=== PATIENT | female | born 1930 | race Caucasian/White ===

== ENCOUNTER → 2017-01-19 | Outpatient (CLI) | payer MEDICARE, BC ==
[~2017-01-19] MED LIST: ALMACONE 360 M360 ML; ALMACONE 360 M360 ML PO; AMITIZA24 MCG PO; ANUSOL-HC2.5% TOP; ARICEPT10 MG PO; ASPI325T6 PO; ATIVAN 0.50.5 MG/TAB PO; BENADRYL25 M2 PO; CALTRATE PLUS1 TAB PO; CITRACAL + D 251 TAB PO; COLACE 100100 MG/CAP PO; DAYPRO 600600 MG PO; DEBROX OT; ENSURE 237 ML237 ML PO; EXELON9.5 MG/24 TD; FENTANYL 100MCG TD; FENTANYL 100MCG TOP; FENTANYL 25 MCG TD; FENTANYL 50MCG TD; FEROSUL325 MG PO; FLONASE NASAL S16 GM NS; FOLIC ACID 11 MG/TA1 PO; GAS RELIEF125 MG PO; KLONOPIN 0.5MG0.5 MG PO; KLONOPIN WAFE0.25 MG PO; LACTAID1 TAB PO; LACTAID3000 UNIT PO; LASIX 20MG TABL20 MG PO; LASIX 40MG TABL40 MG PO; LEVAQUIN 5500 MG/TA1 PO; LEVSIN0.125 M1 PO; LINZESS145CAP; LINZESS145CAP PO; LIQUIFILM TEARS15 ML OP; LOPRESSOR 225 MG/TAB PO; LOPRESSOR 550 MG/TAB PO; LYRICA 100MG C100 M1 PO; LYRICA 50MG CAP50 MG PO; MACROBID 1100 MG/CAP PO; MAG-OX 400400 MG/TAB PO; MAGNESIUM200 MG PO; MILK OF MA400 MG/52; MILK OF MA400 MG/52 PO; MILK OF MAGNESI30 ML PO; MIRALAX PA17 GM/Dose PO; MYRBETR50MG PO; NAMENDA XR 28MG PO; NAPROSYN500 MG PO; NORCO 325 MG-51 TAB PO; NYSTATIN POWDER15 GM TOP; OXYCONTIN 10MG10 MG PO; PERCOCET 325 MG1 TA2 PO; PHENERGAN25 MG RC; PRESERVISION1 SGL PO; PRILOSEC 20MG20 MG PO; PROCTOZONE-HC2.5% RC; SENNA8.6 MG PO; SENOKOT S 50 MG1 TAB PO; SIMETHICONE125 MG PO; SIMETHICONE80 MG PO; SYNTHROID 0.0.025 MG PO; TRIAMCINOLONE A15 G3 TP; TYLENOL 325MG325 MG PO; VITAMIN B-1000 MCG/T PO; VITAMIN B-12100 MCG PO; VITAMIN B12 PO; VITAMIN C500 MG PO; VITAMIN D3400 IU PO; ZANTAC 300300 MG PO; ZESTRIL 20MG TA20 MG PO; ZOFRAN 4MG T4 MG/TAB PO; [UNRECOGNIZED DRUG - CODE] PO
[2017-01-19 10:27] LABS: BASO # 0.1 (0.0-0.2); BASO % 0.7 % (0.0-2.0); EOS # 0.1 (0.0-0.7); EOS % 1.2 % (0-4.0); GRAN # 3.5 (1.4-6.5); GRAN % 50.9 % (42.2-75.2); HEMATOCRIT 41.3 % (37.0-47.0); HEMOGLOBIN 13.8 g/dl (12.5-16.0); LYMPH # 2.5 (1.2-3.4); LYMPH % 36.4 % (20.0-51.0); MEAN CELL VOLUME 87 fl (80.0-100.0); MEAN CORPUSCULAR HEMOGLOBIN 29 pg (27.0-31.0); MEAN CORPUSCULAR HGB CONC 33 g/dl (33.0-37.0); MEAN PLATELET VOLUME 11.1 fl (7.4-10.4); MONO # 0.7 (0.1-0.6); MONO % 10.5 % (1.7-9.3); PLATELET COUNT 195 K/mm3 (130-400); RED BLOOD COUNT 4.76 M/mm3 (4.10-5.30); REDCELL DISTRIBUTION WIDTH-CV 14.7 % (11.5-14.5); WHITE BLOOD COUNT 6.8 K/mm3 (4.8-10.8)
[2017-01-19 10:35] LABS: CALCIUM 9.3 mg/dL (8.4-10.2); CREATININE, serum 0.5 mg/dL (0.52-1.25); POTASSIUM 4.4 mmol/L (3.4-5.0)
== END ==
LOC: ZCOL.LAB 09:31
PROVIDERS: Internal Medicine
DX: D64.89 Other specified anemias (principal)

== ENCOUNTER → 2017-02-25 | Outpatient (CLI) | payer MEDICARE, BC ==
[2017-02-26 00:03] LABS: PH 6 (5-8); URINE APPEARANCE Hazy; URINE BACTERIA Rare /hpf; URINE BILIRUBIN Negative (NEGATIVE); URINE BLOOD Negative (NEGATIVE); URINE COLOR Yellow; URINE GLUCOSE Negative (NEGATIVE); URINE KETONE Negative (NEGATIVE); URINE RBC 0-2 /hpf; URINE UROBILINOGEN Negative (NEGATIVE); URINE WBC 20-50 /hpf
== END ==
LOC: ZLAB.STJ 23:35
PROVIDERS: Internal Medicine
DX: N39.0 Urinary tract infection, site not specified (principal)

== ENCOUNTER → 2017-03-07 | Outpatient (CLI) | payer MEDICARE, BC | LOC: COL.RAD 14:22 | DX: T84.020A Dislocation of internal right hip prosthesis, initial encounter (principal); Y83.8 Other surgical procedures as the cause of abnormal reaction of the patient, or of later complication, without mention of misadventure at the time of the procedure; M25.551 Pain in right hip ==

== ENCOUNTER → 2017-03-09 | Outpatient (CLI) | payer MEDICARE, BC | LOC: COL.RAD 13:17 | DX: M25.572 Pain in left ankle and joints of left foot (principal); M81.8 Other osteoporosis without current pathological fracture ==

== ENCOUNTER → 2017-03-10 | Outpatient (CLI) | payer MEDICARE, BC ==
[2017-03-10 14:05] LABS: PH 7 (5-8); URINE APPEARANCE Clear; URINE BACTERIA Rare /hpf; URINE BILIRUBIN Negative (NEGATIVE); URINE BLOOD 1+ (NEGATIVE); URINE COLOR Yellow; URINE GLUCOSE Negative (NEGATIVE); URINE KETONE Negative (NEGATIVE); URINE RBC 0-2 /hpf; URINE UROBILINOGEN Negative (NEGATIVE)
== END ==
LOC: ZLAB.STJ 10:25
PROVIDERS: Internal Medicine
DX: Z02.89 Encounter for other administrative examinations (principal)

== ENCOUNTER 2017-03-11 11:35 | Inpatient (IN) | payer MEDICARE, BC ==
[~2017-03-11] VITALS: Ht 157.5 cm; Wt 49.8 kg
[~2017-03-11 11:35] MED LIST changes: -ALMACONE 360 M360 ML PO; -ANUSOL-HC2.5% TOP; -DEBROX OT; -ENSURE 237 ML237 ML PO; -FLONASE NASAL S16 GM NS; -LACTAID3000 UNIT PO; -LEVSIN0.125 M1 PO; -LIQUIFILM TEARS15 ML OP; -NAPROSYN500 MG PO; -NORCO 325 MG-51 TAB PO; -NYSTATIN POWDER15 GM TOP; -PHENERGAN25 MG RC; -PROCTOZONE-HC2.5% RC; -SENOKOT S 50 MG1 TAB PO; -TRIAMCINOLONE A15 G3 TP; -TYLENOL 325MG325 MG PO; -ZOFRAN 4MG T4 MG/TAB PO
[2017-03-14] VITALS (9 sets, daily range): BP systolic 90–122; BP diastolic 54–74; PULSE 67–76; TEMP 96.3–97.8
[2017-03-14] MEDS ORDERED: ALMACONE 360 M360 ML PO (11:22)
[2017-03-14] MEDS ORDERED: SIMETHICONE80 MG PO (11:26)
[2017-03-14] MEDS ORDERED: TYLENOL 325MG325 MG PO (11:31)
[2017-03-14 11:36] LABS: CALCIUM 9.1 mg/dL (8.4-10.2); CREATININE, serum 0.55 mg/dL (0.52-1.25); POTASSIUM 4.4 mmol/L (3.4-5.0)
[2017-03-15 01:48] VITALS: BP 108/66; PULSE 61; TEMP 97.5
[2017-03-15 05:25] VITALS: BP 101/62; PULSE 66; TEMP 98
[2017-03-15 08:53] LABS: HEMATOCRIT 33.6 % (37.0-47.0); HEMOGLOBIN 10.8 g/dl (12.5-16.0)
[2017-03-15 10:32] VITALS: BP 92/56; PULSE 78; TEMP 98.1
[2017-03-15 14:20] VITALS: BP 115/66; PULSE 72; TEMP 98
[2017-03-15 17:29] VITALS: BP 1363/71; PULSE 75; TEMP 98.5
[2017-03-15 21:48] VITALS: BP 141/77; PULSE 82; TEMP 98
[2017-03-16 05:01] VITALS: BP 111/55; PULSE 72; TEMP 98.2
[2017-03-16 08:12] LABS: HEMATOCRIT 27.8 % (37.0-47.0); HEMOGLOBIN 9.2 g/dl (12.5-16.0)
[2017-03-16 09:47] VITALS: BP 111/53; PULSE 69; TEMP 97.4
[2017-03-16 13:43] VITALS: BP 85/55; PULSE 73; TEMP 98.4
[2017-03-16 17:33] VITALS: BP 93/54; PULSE 88; TEMP 97.8
[2017-03-16 20:52] VITALS: BP 131/79; PULSE 87; TEMP 98.4
[2017-03-17 06:03] VITALS: BP 110/60; PULSE 78
[2017-03-17] MEDS ORDERED: SENOKOT S 50 MG1 TAB PO (07:18)
[2017-03-17] MEDS ORDERED: ASPI325T6 PO (07:19)
[2017-03-17] MEDS ORDERED: NORCO 325 MG-51 TAB PO (07:25)
[2017-03-17 08:03] LABS: HEMATOCRIT 30.7 % (37.0-47.0); HEMOGLOBIN 10.1 g/dl (12.5-16.0)
[2017-03-17] MEDS ORDERED: NAPROSYN500 MG PO (08:03)
[2017-03-17] MEDS ORDERED: COLACE 100100 MG/CAP PO (08:03)
[2017-03-17] MEDS ORDERED: ZOFRAN 4MG T4 MG/TAB PO (08:05)
[2017-03-17 10:19] VITALS: BP 102/57; PULSE 77; TEMP 98
[2017-03-17 10:29] VITALS: BP 102/57; PULSE 77; TEMP 98
== END 2017-03-17 14:02 | DRG 470 ==
LOC: INPTSU 03-14 09:48 → JCC 03-14 11:30 → SURG 03-14 11:30
PROVIDERS: Nurse Anesthetist, Certified Registered; Orthopaedic Surgery Sports Medicine
PROC: 0SRR0J9 Replacement of Right Hip Joint, Femoral Surface with Synthetic Substitute, Cemented, Open Approach (ICD-10-PCS; principal; 2017-03-14 11:30)
PROC: 0QP604Z Removal of Internal Fixation Device from Right Upper Femur, Open Approach (ICD-10-PCS; 2017-03-14 11:30)
DX: S72.141D Displaced intertrochanteric fracture of right femur, subsequent encounter for closed fracture with routine healing (principal); M87.851 Other osteonecrosis, right femur; I10 Essential (primary) hypertension
CPT/HCPCS: A9284; C1776; J0690; J1100; J2175; J2250; J2405; J2704; J2765; J7030; J7120

== ENCOUNTER 2017-03-20 23:07 | Inpatient (IN) | payer MEDICARE, BC ==
[~2017-03-20] VITALS: Ht 152.4 cm; Wt 52.2 kg
[~2017-03-20 23:07] MED LIST changes: +ALMACONE 360 M360 ML PO; +NAPROSYN500 MG PO; +NORCO 325 MG-51 TAB PO; +SENOKOT S 50 MG1 TAB PO; +TYLENOL 325MG325 MG PO; +ZOFRAN 4MG T4 MG/TAB PO
[2017-03-20 23:39] LABS: BASO % 0.4 % (0.0-2.0); EOS # 0.2 (0.0-0.7); EOS % 2.3 % (0-4.0); GRAN # 3.5 (1.4-6.5); GRAN % 41.2 % (42.2-75.2); LYMPH # 3.8 (1.2-3.4); LYMPH % 44.6 % (20.0-51.0); MEAN CELL VOLUME 91 fl (80.0-100.0); MEAN CORPUSCULAR HGB CONC 32 g/dl (33.0-37.0); MONO # 0.9 (0.1-0.6); MONO % 10.8 % (1.7-9.3); PLATELET COUNT 282 K/mm3 (130-400); REDCELL DISTRIBUTION WIDTH-CV 15.9 % (11.5-14.5); WHITE BLOOD COUNT 8.6 K/mm3 (4.8-10.8)
[2017-03-20 23:46] LABS: HEMATOCRIT 28.1 % (37.0-47.0); HEMOGLOBIN 8.9 g/dl (12.5-16.0); MEAN CORPUSCULAR HEMOGLOBIN 29 pg (27.0-31.0)
[2017-03-20 23:49] LABS: INR 1.1 (0.8-3.0); PROTHROMBIN TIME 12.1 SECONDS (9.7-12.8)
[2017-03-20 23:52] LABS: PARTIAL THROMBOPLASTIN TIME 30.8 SECONDS (26.0-37.0)
[2017-03-21] VITALS (493 sets, daily range): BP systolic 94–151; BP diastolic 57–94; PULSE 60–108; TEMP 97.1–98.9; O2SAT 59–100
[2017-03-21] LABS: PH 5 (5-8); SQUAMOUS EPITHELIAL None Seen /hpf; URINE APPEARANCE Clear; URINE BACTERIA Rare /hpf; URINE BILIRUBIN Negative (NEGATIVE); URINE BLOOD Negative (NEGATIVE); URINE COLOR Amber; URINE GLUCOSE Negative (NEGATIVE); URINE KETONE Negative (NEGATIVE); URINE RBC 0-2 /hpf; URINE UROBILINOGEN Negative (NEGATIVE)
[2017-03-21 00:18] LABS: ADJUSTED CALCIUM 9.3 mg/dL (8.4-10.2); ALANINE AMINOTRANSFERASE 28 U/L (9-52); ALBUMIN 2.8 gm/dL (3.5-5.0); ALKALINE PHOSPHATASE 130 U/L (50-136); ANION GAP 7 mmol/L (7-16); BILIRUBIN,TOTAL 1.5 mg/dL (0.0-1.0); BLOOD UREA NITROGEN 21 mg/dL (7-17); CALCIUM 8.3 mg/dL (8.4-10.2); CARBON DIOXIDE 34 mmol/L (22-30); CHLORIDE 91 mmol/L (98-107); CREATINE KINASE 64 U/L (30-135); CREATININE, serum 0.73 mg/dL (0.52-1.25); GLUCOSE 82 mg/dL (74-106); POTASSIUM 4.4 mmol/L (3.4-5.0); SODIUM 131 mmol/L (137-145); TOTAL PROTEIN 5.5 gm/dL (6.4-8.2)
[2017-03-21] MEDS ORDERED: ENSURE 237 ML237 ML PO (00:19)
[2017-03-21 00:30] LABS: B-TYPE NATRIURETIC PEPTIDE 555 pg/mL (0-450); TROPONIN-I < 0.012 ng/mL (0.000-0.034)
[2017-03-21] MEDS ORDERED: PERCOCET 325 MG1 TA2 PO (02:46)
[2017-03-21 10:09] LABS: BASO % 0.6 % (0.0-2.0); EOS # 0.2 (0.0-0.7); EOS % 3.7 % (0-4.0); GRAN # 2.5 (1.4-6.5); GRAN % 38.2 % (42.2-75.2); LYMPH % 46.4 % (20.0-51.0); MEAN CELL VOLUME 92 fl (80.0-100.0); MEAN CORPUSCULAR HGB CONC 32 g/dl (33.0-37.0); MONO # 0.7 (0.1-0.6); MONO % 10.6 % (1.7-9.3); PLATELET COUNT 287 K/mm3 (130-400); RED BLOOD COUNT 3.07 M/mm3 (4.10-5.30); WHITE BLOOD COUNT 6.4 K/mm3 (4.8-10.8)
[2017-03-21 10:10] LABS: ALBUMIN 2.6 gm/dL (3.5-5.0); BILIRUBIN,TOTAL 1.1 mg/dL (0.0-1.0); CALCIUM 7.9 mg/dL (8.4-10.2); CREATININE, serum 0.63 mg/dL (0.52-1.25); POTASSIUM 4.2 mmol/L (3.4-5.0); TOTAL PROTEIN 5.4 gm/dL (6.4-8.2)
[2017-03-21 10:28] LABS: HEMATOCRIT 28.1 % (37.0-47.0); MEAN CORPUSCULAR HEMOGLOBIN 29 pg (27.0-31.0)
[2017-03-22 03:23] VITALS: BP 132/68; PULSE 97; TEMP 97.8
[2017-03-22 07:17] VITALS: BP 120/68; PULSE 96; TEMP 97.8
[2017-03-22 08:52] LABS: BASO % 0.3 % (0.0-2.0); EOS # 0.1 (0.0-0.7); EOS % 1.6 % (0-4.0); GRAN # 4.2 (1.4-6.5); GRAN % 54.6 % (42.2-75.2); LYMPH # 2.4 (1.2-3.4); LYMPH % 32.1 % (20.0-51.0); MEAN CELL VOLUME 91 fl (80.0-100.0); MEAN CORPUSCULAR HGB CONC 32 g/dl (33.0-37.0); MEAN PLATELET VOLUME 10.1 fl (7.4-10.4); MONO # 0.8 (0.1-0.6); MONO % 10.5 % (1.7-9.3); PLATELET COUNT 312 K/mm3 (130-400); RED BLOOD COUNT 2.84 M/mm3 (4.10-5.30); WHITE BLOOD COUNT 7.6 K/mm3 (4.8-10.8)
[2017-03-22 09:03] LABS: HEMATOCRIT 25.9 % (37.0-47.0); HEMOGLOBIN 8.4 g/dl (12.5-16.0); MEAN CORPUSCULAR HEMOGLOBIN 30 pg (27.0-31.0)
[2017-03-22 09:07] LABS: CREATININE, serum 0.45 mg/dL (0.52-1.25); POTASSIUM 3.8 mmol/L (3.4-5.0)
[2017-03-22 11:25] VITALS: BP 150/80; PULSE 119; TEMP 99
[2017-03-22 18:19] VITALS: BP 106/78; PULSE 98; TEMP 98.2
[2017-03-22 23:06] VITALS: BP 140/79; PULSE 99; TEMP 99.6
[2017-03-23 04:43] VITALS: BP 148/79; PULSE 95; TEMP 97.8
[2017-03-23 07:21] VITALS: BP 148/83; PULSE 92; TEMP 98.1
[2017-03-23 11:50] VITALS: BP 135/77; PULSE 93; TEMP 98.2
[2017-03-23 15:32] VITALS: BP 143/87; PULSE 75; TEMP 98.3
[2017-03-23 19:33] VITALS: BP 107/67; PULSE 91; TEMP 98.3
[2017-03-24] VITALS (9 sets, daily range): BP systolic 112–126; BP diastolic 67–74; PULSE 74–112; TEMP 98.3–98.8
[2017-03-24 08:27] LABS: CALCIUM 8.1 mg/dL (8.4-10.2); CREATININE, serum 0.44 mg/dL (0.52-1.25)
[2017-03-24 08:29] LABS: POTASSIUM 2.4 mmol/L (3.4-5.0)
[2017-03-24 08:52] LABS: BASO # 0.1 (0.0-0.2); BASO % 0.4 % (0.0-2.0); EOS # 0.2 (0.0-0.7); EOS % 1.4 % (0-4.0); GRAN # 6.8 (1.4-6.5); GRAN % 56.1 % (42.2-75.2); LYMPH % 32.8 % (20.0-51.0); MEAN CELL VOLUME 89 fl (80.0-100.0); MEAN CORPUSCULAR HGB CONC 33 g/dl (33.0-37.0); MEAN PLATELET VOLUME 10.1 fl (7.4-10.4); PLATELET COUNT 331 K/mm3 (130-400); RED BLOOD COUNT 3.14 M/mm3 (4.10-5.30); REDCELL DISTRIBUTION WIDTH-CV 17.2 % (11.5-14.5); WHITE BLOOD COUNT 12.2 K/mm3 (4.8-10.8)
[2017-03-24 08:54] LABS: HEMATOCRIT 27.8 % (37.0-47.0); HEMOGLOBIN 9.2 g/dl (12.5-16.0); MEAN CORPUSCULAR HEMOGLOBIN 29 pg (27.0-31.0)
[2017-03-24 09:28] LABS: MAGNESIUM 1.5 mg/dL (1.6-2.3)
[2017-03-25 03:34] VITALS: BP 129/75; PULSE 77; TEMP 98.3
[2017-03-25 07:27] LABS: BASO # 0.1 (0.0-0.2); BASO % 0.5 % (0.0-2.0); EOS # 0.2 (0.0-0.7); EOS % 1.9 % (0-4.0); GRAN # 6.7 (1.4-6.5); GRAN % 51.8 % (42.2-75.2); LYMPH # 4.8 (1.2-3.4); LYMPH % 36.7 % (20.0-51.0); MEAN CELL VOLUME 91 fl (80.0-100.0); MEAN CORPUSCULAR HGB CONC 33 g/dl (33.0-37.0); MEAN PLATELET VOLUME 9.8 fl (7.4-10.4); MONO % 7.8 % (1.7-9.3); PLATELET COUNT 351 K/mm3 (130-400); RED BLOOD COUNT 3.19 M/mm3 (4.10-5.30); REDCELL DISTRIBUTION WIDTH-CV 18.1 % (11.5-14.5); WHITE BLOOD COUNT 12.9 K/mm3 (4.8-10.8)
[2017-03-25 07:38] LABS: CALCIUM 8.4 mg/dL (8.4-10.2); CREATININE, serum 0.44 mg/dL (0.52-1.25); MAGNESIUM 2.1 mg/dL (1.6-2.3); POTASSIUM 3.7 mmol/L (3.4-5.0)
[2017-03-25 07:43] LABS: HEMATOCRIT 28.9 % (37.0-47.0); HEMOGLOBIN 9.5 g/dl (12.5-16.0); MEAN CORPUSCULAR HEMOGLOBIN 30 pg (27.0-31.0)
[2017-03-25 08:08] VITALS: BP 117/66; PULSE 87; TEMP 98.1
[2017-03-25] MEDS ORDERED: LOPRESSOR 550 MG/TAB PO (10:37)
[2017-03-25] MEDS ORDERED: ANUSOL-HC2.5% TOP (10:40)
[2017-03-25] MEDS ORDERED: LIQUIFILM TEARS15 ML OP (10:42)
[2017-03-25] MEDS ORDERED: FENTANYL 50MCG TD (10:43)
[2017-03-25 12:20] VITALS: BP 103/48; PULSE 79; TEMP 97.9
[2017-03-25] MEDS ORDERED: NORCO 325 MG-51 TAB PO (13:37)
[2017-03-25 14:43] VITALS: BP 103/48; PULSE 79; TEMP 97.9
== END 2017-03-25 15:35 | DRG 947 ==
LOC: COL.ER 23:07 → MEDICAL 03-21 01:17 → ICU 03-21 01:17 → MEDICAL 03-21 12:16
PROVIDERS: Emergency Medicine; Family Medicine; Internal Medicine; Nurse Practitioner Family
DX: R41.82 Altered mental status, unspecified (principal); E43 Unspecified severe protein-calorie malnutrition; T40.4X5A Adverse effect of other synthetic narcotics, initial encounter; Z66 Do not resuscitate; F03.90 Unspecified dementia, unspecified severity, without behavioral disturbance, psychotic disturbance, mood disturbance, and anxiety; I10 Essential (primary) hypertension; D64.9 Anemia, unspecified; R33.9 Retention of urine, unspecified; R35.0 Frequency of micturition; E87.6 Hypokalemia; E83.42 Hypomagnesemia; R10.84 Generalized abdominal pain; S72.001D Fracture of unspecified part of neck of right femur, subsequent encounter for closed fracture with routine healing; R00.1 Bradycardia, unspecified
CPT/HCPCS: 99223-AI; 99232-AI; 99233-AI; 99239; J0696; J1644; J2270; J3370; J3475; J7030; J7050

== ENCOUNTER → 2017-03-28 | Outpatient (REF) ==
[~2017-03-28] MED LIST changes: +ANUSOL-HC2.5% TOP; +DEBROX OT; +ENSURE 237 ML237 ML PO; +FLONASE NASAL S16 GM NS; +LACTAID3000 UNIT PO; +LEVSIN0.125 M1 PO; +LIQUIFILM TEARS15 ML OP; +NYSTATIN POWDER15 GM TOP; +PHENERGAN25 MG RC; +PROCTOZONE-HC2.5% RC; +TRIAMCINOLONE A15 G3 TP
[2017-03-28 09:33] LABS: BASO # 0.1 (0.0-0.2); BASO % 0.7 % (0.0-2.0); EOS # 0.2 (0.0-0.7); EOS % 1.7 % (0-4.0); GRAN # 8.8 (1.4-6.5); GRAN % 68.7 % (42.2-75.2); LYMPH # 2.9 (1.2-3.4); LYMPH % 22.9 % (20.0-51.0); MEAN CELL VOLUME 91 fl (80.0-100.0); MEAN CORPUSCULAR HGB CONC 33 g/dl (33.0-37.0); MEAN PLATELET VOLUME 9.6 fl (7.4-10.4); MONO # 0.7 (0.1-0.6); MONO % 5.6 % (1.7-9.3); PLATELET COUNT 355 K/mm3 (130-400); RED BLOOD COUNT 3.39 M/mm3 (4.10-5.30); REDCELL DISTRIBUTION WIDTH-CV 18.9 % (11.5-14.5); WHITE BLOOD COUNT 12.8 K/mm3 (4.8-10.8)
[2017-03-28 09:40] LABS: HEMOGLOBIN 10.2 g/dl (12.5-16.0); MEAN CORPUSCULAR HEMOGLOBIN 30 pg (27.0-31.0)
[2017-03-28 09:44] LABS: CALCIUM 8.7 mg/dL (8.4-10.2); CREATININE, serum 0.41 mg/dL (0.52-1.25); POTASSIUM 4.7 mmol/L (3.4-5.0)
== END ==
LOC: ZLAB.STJ 09:14
PROVIDERS: Internal Medicine
DX: Z01.89 Encounter for other specified special examinations (principal)

== ENCOUNTER → 2017-04-08 | Outpatient (REF) ==
[2017-04-08 09:55] LABS: CALCIUM 8.2 mg/dL (8.4-10.2); CREATININE, serum 0.5 mg/dL (0.52-1.25); POTASSIUM 4.4 mmol/L (3.4-5.0)
[2017-04-08 10:24] LABS: THYROID STIMULATING HORMONE 1.79 uIU/mL (0.465-4.680)
== END ==
LOC: ZLAB.STJ 09:29
PROVIDERS: Internal Medicine
DX: Z01.89 Encounter for other specified special examinations (principal)

== ENCOUNTER → 2017-04-13 | Outpatient (CLI) | payer MEDICARE, BC | LOC: COL.RAD 13:03 | DX: M85.872 Other specified disorders of bone density and structure, left ankle and foot (principal) ==

== ENCOUNTER → 2017-05-11 | Outpatient (CLI) | payer MEDICARE, BC | LOC: COL.RAD 09:33 | DX: S32.592A Other specified fracture of left pubis, initial encounter for closed fracture (principal); M17.12 Unilateral primary osteoarthritis, left knee; M81.0 Age-related osteoporosis without current pathological fracture; M21.862 Other specified acquired deformities of left lower leg ==

== ENCOUNTER 2017-06-10 12:09 | Emergency (ER) | payer MEDICARE, BC ==
[~2017-06-10] VITALS: Ht 152.4 cm; Wt 47.3 kg
[~2017-06-10 12:09] MED LIST changes: -DEBROX OT; -FLONASE NASAL S16 GM NS; -LACTAID3000 UNIT PO; -LEVSIN0.125 M1 PO; -NYSTATIN POWDER15 GM TOP; -PHENERGAN25 MG RC; -PROCTOZONE-HC2.5% RC; -TRIAMCINOLONE A15 G3 TP
[2017-06-10 12:12] VITALS: TEMP 98.6
[2017-06-10 12:47] LABS: ADJUSTED CALCIUM 9.1 mg/dL (8.4-10.2); ALANINE AMINOTRANSFERASE 25 U/L (9-52); ALBUMIN 4.2 gm/dL (3.5-5.0); ALKALINE PHOSPHATASE 93 U/L (50-136); ANION GAP 9 mmol/L (7-16); BILIRUBIN,TOTAL 0.7 mg/dL (0.0-1.0); BLOOD UREA NITROGEN 10 mg/dL (7-17); CALCIUM 9.3 mg/dL (8.4-10.2); CARBON DIOXIDE 29 mmol/L (22-30); CHLORIDE 92 mmol/L (98-107); CREATININE, serum 0.49 mg/dL (0.52-1.25); GLUCOSE 97 mg/dL (74-106); POTASSIUM 4.1 mmol/L (3.4-5.0); SODIUM 130 mmol/L (137-145); TOTAL PROTEIN 7.5 gm/dL (6.4-8.2)
[2017-06-10 12:48] LABS: C-REACTIVE PROTEIN < 0.5 mg/dL (0.0-0.9)
[2017-06-10 12:53] LABS: BASO % 0.6 % (0.0-2.0); GRAN # 4.3 (1.4-6.5); GRAN % 65.3 % (42.2-75.2); HEMATOCRIT 40.5 % (37.0-47.0); HEMOGLOBIN 13.7 g/dl (12.5-16.0); LYMPH # 1.7 (1.2-3.4); LYMPH % 25.5 % (20.0-51.0); MEAN CELL VOLUME 88 fl (80.0-100.0); MEAN CORPUSCULAR HEMOGLOBIN 30 pg (27.0-31.0); MEAN CORPUSCULAR HGB CONC 34 g/dl (33.0-37.0); MEAN PLATELET VOLUME 10.1 fl (7.4-10.4); MONO # 0.6 (0.1-0.6); MONO % 8.3 % (1.7-9.3); PLATELET COUNT 232 K/mm3 (130-400); REDCELL DISTRIBUTION WIDTH-CV 14.3 % (11.5-14.5); WHITE BLOOD COUNT 6.6 K/mm3 (4.8-10.8)
[2017-06-10 12:54] LABS: INR 1.1 (0.8-3.0); PROTHROMBIN TIME 11.7 SECONDS (9.7-12.8)
[2017-06-10] MEDS ORDERED: DEBROX OT (13:32)
[2017-06-10] MEDS ORDERED: PHENERGAN25 MG RC (13:32)
[2017-06-10] MEDS ORDERED: NYSTATIN POWDER15 GM TOP (13:33)
[2017-06-10] MEDS ORDERED: LACTAID3000 UNIT PO (13:33)
[2017-06-10] MEDS ORDERED: FLONASE NASAL S16 GM NS (13:33)
[2017-06-10] MEDS ORDERED: TRIAMCINOLONE A15 G3 TP (13:34)
[2017-06-10] MEDS ORDERED: LEVSIN0.125 M1 PO (13:35)
[2017-06-10 13:36] VITALS: BP 144/92; PULSE 60
[2017-06-10 13:54] LABS: PH 8 (5-8); SQUAMOUS EPITHELIAL None Seen /hpf; URINE APPEARANCE Clear; URINE BACTERIA Rare /hpf; URINE BILIRUBIN Negative (NEGATIVE); URINE BLOOD Negative (NEGATIVE); URINE COLOR Colorless; URINE GLUCOSE Negative (NEGATIVE); URINE KETONE Negative (NEGATIVE); URINE RBC None Seen /hpf; URINE UROBILINOGEN Negative (NEGATIVE); URINE WBC 0-2 /hpf
== END 2017-06-10 13:57 | disposition home or self-care (01) ==
LOC: COL.ER 12:09
PROVIDERS: Family Medicine
DX: R47.1 Dysarthria and anarthria (principal); I10 Essential (primary) hypertension; Z87.891 Personal history of nicotine dependence

== ENCOUNTER 2017-06-14 06:59 | Emergency (ER) | payer MEDICARE, BC ==
[~2017-06-14] VITALS: Ht 154.9 cm; Wt 47.3 kg
[~2017-06-14 06:59] MED LIST changes: +DEBROX OT; +FLONASE NASAL S16 GM NS; +LACTAID3000 UNIT PO; +LEVSIN0.125 M1 PO; +NYSTATIN POWDER15 GM TOP; +PHENERGAN25 MG RC; +TRIAMCINOLONE A15 G3 TP
[2017-06-14 07:01] VITALS: TEMP 97.7
[2017-06-14 07:39] LABS: HEMATOCRIT 39.7 % (37.0-47.0); HEMOGLOBIN 13.6 g/dl (12.5-16.0); MEAN CELL VOLUME 86 fl (80.0-100.0); MEAN CORPUSCULAR HEMOGLOBIN 29 pg (27.0-31.0); MEAN CORPUSCULAR HGB CONC 34 g/dl (33.0-37.0); MEAN PLATELET VOLUME 10.2 fl (7.4-10.4); PLATELET COUNT 237 K/mm3 (130-400); RED BLOOD COUNT 4.64 M/mm3 (4.10-5.30); REDCELL DISTRIBUTION WIDTH-CV 14.3 % (11.5-14.5)
[2017-06-14 07:40] LABS: ADD PATHOLOGY DIFF REVIEW NO
[2017-06-14 08:13] LABS: BAND 12 % (0-10); NEUTROPHILS 78 % (42.0-75.2); PLATELET ESTIMATE NORMAL (NORMAL); TOTAL CELLS COUNTED 100
[2017-06-14] MEDS ORDERED: PROCTOZONE-HC2.5% RC (08:53)
[2017-06-14 09:20] LABS: CALCIUM 9.3 mg/dL (8.4-10.2); CREATININE, serum 0.42 mg/dL (0.52-1.25); POTASSIUM 4.4 mmol/L (3.4-5.0)
[2017-06-14 10:38] VITALS: BP 150/97; PULSE 87
[2017-06-14] MEDS ORDERED: NAMENDA XR 28MG PO (10:42)
== END 2017-06-14 10:39 | disposition home or self-care (01) ==
LOC: COL.ER 06:59
PROVIDERS: Emergency Medicine
DX: S32.19XA Other fracture of sacrum, initial encounter for closed fracture (principal); K59.00 Constipation, unspecified; W01.198A Fall on same level from slipping, tripping and stumbling with subsequent striking against other object, initial encounter; Y92.129 Unspecified place in nursing home as the place of occurrence of the external cause; F03.90 Unspecified dementia, unspecified severity, without behavioral disturbance, psychotic disturbance, mood disturbance, and anxiety
CPT/HCPCS: J1885

== ENCOUNTER → 2017-07-04 | Outpatient (CLI) | payer MEDICARE, BC ==
[~2017-07-04] MED LIST changes: +PROCTOZONE-HC2.5% RC
== END ==
LOC: COL.RAD 13:38
DX: R41.841 Cognitive communication deficit (principal); R13.12 Dysphagia, oropharyngeal phase
CPT/HCPCS: G8996-GN; G8997-GN; G8998-GN

== ENCOUNTER → 2017-07-19 | Outpatient (CLI) | payer MEDICARE, BC | LOC: ZCOL.LAB 14:58 | DX: N39.0 Urinary tract infection, site not specified (principal) ==

== ENCOUNTER → 2017-07-20 | Outpatient (REF) ==
[2017-07-20 10:16] LABS: PH 7 (5-8); SQUAMOUS EPITHELIAL None Seen /hpf; URINE APPEARANCE Clear; URINE BACTERIA Rare /hpf; URINE BILIRUBIN Negative (NEGATIVE); URINE BLOOD Negative (NEGATIVE); URINE COLOR Yellow; URINE GLUCOSE Negative (NEGATIVE); URINE KETONE Trace (NEGATIVE); URINE UROBILINOGEN Negative (NEGATIVE); URINE WBC 0-2 /hpf
== END ==
LOC: ZLAB.STJ 09:50
PROVIDERS: Internal Medicine
DX: Z02.89 Encounter for other administrative examinations (principal)

== ENCOUNTER → 2017-09-29 | Outpatient (CLI) | payer MEDICARE, BC ==
[2017-09-29 10:45] LABS: CREATININE, serum 0.51 mg/dL (0.52-1.25); POTASSIUM 4.8 mmol/L (3.4-5.0)
== END ==
LOC: ZLAB.WCH 10:12
PROVIDERS: Nurse Practitioner
DX: I10 Essential (primary) hypertension (principal)

== ENCOUNTER 2017-12-12 10:31 | Emergency (ER) | payer MEDICARE, BC ==
[~2017-12-12] VITALS: Ht 154.9 cm; Wt 44.5 kg
[2017-12-12 10:33] VITALS: TEMP 97.6
[2017-12-12] MEDS ORDERED: PRILOSEC 20MG20 MG PO (11:06)
[2017-12-12] MEDS ORDERED: MAG-OX 400400 MG/TAB PO (11:06)
[2017-12-12] MEDS ORDERED: LEVOXYL0.025 MG PO (11:06)
[2017-12-12] MEDS ORDERED: NAMENDA XR 21MG PO (11:07)
[2017-12-12] MEDS ORDERED: LACTAID3000 UNIT PO (11:08)
[2017-12-12] MEDS ORDERED: LEXAPRO 5MG5 MG PO (11:09)
[2017-12-12] MEDS ORDERED: FLONASE SENSIM9.9 ML NS (11:09)
[2017-12-12] MEDS ORDERED: NORCO 325 MG-51 TAB PO (11:11)
[2017-12-12] MEDS ORDERED: EXELON9.5 MG/24 TD (11:12)
[2017-12-12] MEDS ORDERED: PRINIVIL20 MG PO (11:12)
[2017-12-12] MEDS ORDERED: NORVASC 5MG5 MG/TAB PO (11:13)
[2017-12-12] MEDS ORDERED: FENTANYL 100MCG TD (11:13)
[2017-12-12] MEDS ORDERED: SENNA8.6 MG PO (11:14)
[2017-12-12] MEDS ORDERED: TOPROL XL100 MG PO (11:15)
[2017-12-12] MEDS ORDERED: TAMIFLU 75MG75 MG PO (11:16)
[2017-12-12 11:54] VITALS: BP 120/76; PULSE 87
== END 2017-12-12 11:53 | disposition home or self-care (01) ==
LOC: COL.ER 10:31
DX: S70.01XA Contusion of right hip, initial encounter (principal); N36.2 Urethral caruncle; W18.39XA Other fall on same level, initial encounter; Y92.129 Unspecified place in nursing home as the place of occurrence of the external cause

== ENCOUNTER → 2018-01-09 | Outpatient (CLI) | payer MEDICARE, BC ==
[~2018-01-09] MED LIST changes: +FLONASE SENSIM9.9 ML NS; +LEVOXYL0.025 MG PO; +LEXAPRO 5MG5 MG PO; +NAMENDA XR 21MG PO; +NORVASC 5MG5 MG/TAB PO; +PRINIVIL20 MG PO; +TAMIFLU 75MG75 MG PO; +TOPROL XL100 MG PO
[2018-01-09 18:12] LABS: COLLECTION METHOD CLEAN CATCH
[2018-01-09 18:36] LABS: PH 8 (5-8); SQUAMOUS EPITHELIAL 0-2 /hpf; URINE APPEARANCE Cloudy; URINE BACTERIA Moderate /hpf; URINE BILIRUBIN Negative (NEGATIVE); URINE BLOOD 1+ (NEGATIVE); URINE COLOR Yellow; URINE GLUCOSE Negative (NEGATIVE); URINE KETONE Negative (NEGATIVE); URINE LEUKOCYTE ESTERASE 3+ (NEGATIVE); URINE NITRATE Negative (NEGATIVE); URINE PROTEIN(semi-quant) Negative (NEGATIVE); URINE UROBILINOGEN Negative (NEGATIVE); URINE WBC >50 /hpf
== END ==
LOC: ZLAB.STJ 18:00
PROVIDERS: Nurse Practitioner
DX: N39.0 Urinary tract infection, site not specified (principal)

== ENCOUNTER → 2018-04-17 | Outpatient (REF) | LOC: ZLAB.STJ 14:01 | DX: Z51.81 Encounter for therapeutic drug level monitoring (principal) ==

== ENCOUNTER → 2018-06-20 | Outpatient (CLI) | payer MEDICARE, BC | LOC: ZLAB.STJ 05:30 | DX: E03.9 Hypothyroidism, unspecified (principal); I10 Essential (primary) hypertension ==

== ENCOUNTER → 2018-08-17 | Outpatient (CLI) | payer MEDICARE, BC ==
[2018-08-17 16:42] LABS: CALCIUM 9.2 mg/dL (8.4-10.2); CREATININE, serum 0.57 mg/dL (0.52-1.25); POTASSIUM 5.1 mmol/L (3.4-5.0)
== END ==
LOC: ZLAB.STJ 16:16
PROVIDERS: Nurse Practitioner
DX: I10 Essential (primary) hypertension (principal)

== ENCOUNTER → 2018-09-14 | Outpatient (CLI) | payer MEDICARE, BC | LOC: COL.RAD 10:21 | DX: M81.0 Age-related osteoporosis without current pathological fracture (principal); R60.0 Localized edema ==

== ENCOUNTER → 2018-11-08 | Outpatient (CLI) | payer MEDICARE, BC ==
[2018-11-08 13:30] LABS: CALCIUM 8.6 mg/dL (8.4-10.2); CREATININE, serum 0.74 mg/dL (0.52-1.25); POTASSIUM 5.4 mmol/L (3.4-5.0)
== END ==
LOC: ZLAB.STJ 11:56
PROVIDERS: Internal Medicine
DX: R79.89 Other specified abnormal findings of blood chemistry (principal)

== ENCOUNTER 2019-01-20 17:48 | Emergency (ER) | payer MEDICARE, BC | END 2019-01-20 19:11 | disposition home or self-care (01) | LOC: COL.ER 17:48 | DX: S61.412A Laceration without foreign body of left hand, initial encounter (principal); W22.8XXA Striking against or struck by other objects, initial encounter ==

== ENCOUNTER 2019-02-09 21:05 | Emergency (ER) | payer MEDICARE, BC ==
[~2019-02-09] VITALS: Ht 154.9 cm; Wt 47.3 kg
[2019-02-09 21:09] VITALS: TEMP 97
[2019-02-09 23:05] VITALS: BP 135/81; PULSE 72
[2019-02-10] MEDS ORDERED: MAG-OX 400400 MG/TAB PO (02:44)
[2019-02-10] MEDS ORDERED: LEVOXYL0.025 MG PO (02:44)
[2019-02-10] MEDS ORDERED: ZOFRAN ODT4 MG PO (02:44)
[2019-02-10] MEDS ORDERED: NULEV0.125 M1 PO (02:45)
[2019-02-10] MEDS ORDERED: XANAX .25M0.25 MG/TA PO (02:45)
[2019-02-10] MEDS ORDERED: NORCO 325 MG-51 TAB PO (02:46)
[2019-02-10] MEDS ORDERED: EXELON9.5 MG/24 TD (02:47)
[2019-02-10] MEDS ORDERED: NORVASC 5MG5 MG/TAB PO (02:47)
[2019-02-10] MEDS ORDERED: FENTANYL 100MCG TD (02:47)
[2019-02-10] MEDS ORDERED: SENNA-LAX8.6 MG PO (02:48)
[2019-02-10] MEDS ORDERED: THERATEARS 0.60.6 ML OP (02:48)
[2019-02-10] MEDS ORDERED: ZESTRIL 20MG TA20 MG PO (02:49)
[2019-02-10] MEDS ORDERED: PEPCID 20MG TAB20 MG PO (02:49)
[2019-02-10] MEDS ORDERED: COLACE 100100 MG/CAP PO (02:49)
[2019-02-10] MEDS ORDERED: NAMENDA XR 28MG PO (02:50)
[2019-02-10] MEDS ORDERED: MIRALAX PA17 GM/Dose PO (02:51)
[2019-02-10] MEDS ORDERED: KAPSPARGO SPRI100 MG PO (02:52)
[2019-02-10] MEDS ORDERED: LEXAPRO20 MG PO (02:52)
[2019-02-10] MEDS ORDERED: [UNRECOGNIZED DRUG - CODE] PO (02:52)
== END 2019-02-09 23:15 | disposition home or self-care (01) ==
LOC: COL.ER 21:05
DX: S30.0XXA Contusion of lower back and pelvis, initial encounter (principal); I10 Essential (primary) hypertension; F03.90 Unspecified dementia, unspecified severity, without behavioral disturbance, psychotic disturbance, mood disturbance, and anxiety; Z79.51 Long term (current) use of inhaled steroids; W07.XXXA Fall from chair, initial encounter; Y92.129 Unspecified place in nursing home as the place of occurrence of the external cause

== ENCOUNTER → 2019-03-09 | Outpatient (CLI) | payer MEDICARE, BC ==
[~2019-03-09] MED LIST changes: +KAPSPARGO SPRI100 MG PO; +LEXAPRO20 MG PO; +NULEV0.125 M1 PO; +PEPCID 20MG TAB20 MG PO; +SENNA-LAX8.6 MG PO; +THERATEARS 0.60.6 ML OP; +XANAX .25M0.25 MG/TA PO; +ZOFRAN ODT4 MG PO
[2019-03-09 16:41] LABS: COLLECTION METHOD CLEAN CATCH
[2019-03-09 16:54] LABS: MUCOUS Present /lpf; PH 5 (5-8); URINE APPEARANCE Cloudy; URINE BACTERIA Many /hpf; URINE BILIRUBIN Negative (NEGATIVE); URINE BLOOD Negative (NEGATIVE); URINE COLOR Yellow; URINE GLUCOSE Negative (NEGATIVE); URINE KETONE Negative (NEGATIVE); URINE LEUKOCYTE ESTERASE 3+ (NEGATIVE); URINE NITRATE Positive (NEGATIVE); URINE PROTEIN(semi-quant) Negative (NEGATIVE); URINE RBC 20-50 /hpf; URINE UROBILINOGEN Negative (NEGATIVE)
== END ==
LOC: ZLAB.STJ 15:58
PROVIDERS: Internal Medicine
DX: Z01.89 Encounter for other specified special examinations (principal)

== ENCOUNTER → 2019-03-09 | Outpatient (REF) ==
[2019-03-09 13:57] LABS: HEMATOCRIT 41.8 % (37.0-47.0); HEMOGLOBIN 13.6 g/dl (12.5-16.0); MEAN CELL VOLUME 94 fl (80.0-100.0); MEAN CORPUSCULAR HEMOGLOBIN 31 pg (27.0-31.0); MEAN CORPUSCULAR HGB CONC 33 g/dl (33.0-37.0); MEAN PLATELET VOLUME 10.4 fl (7.4-10.4); PLATELET COUNT 242 K/mm3 (130-400); RED BLOOD COUNT 4.44 M/mm3 (4.10-5.30); REDCELL DISTRIBUTION WIDTH-CV 13.9 % (11.5-14.5)
[2019-03-09 14:13] LABS: CALCIUM 9.1 mg/dL (8.4-10.2); CREATININE, serum 0.55 (0.52-1.25); POTASSIUM 5.2 mmol/L (3.4-5.0)
== END ==
LOC: ZLAB.STJ 13:49
PROVIDERS: Internal Medicine
DX: R44.3 Hallucinations, unspecified (principal)

== ENCOUNTER → 2019-04-30 | Outpatient (REF) ==
[2019-04-30 10:08] LABS: CALCIUM 9.1 mg/dL (8.4-10.2); CREATININE, serum 0.5 (0.52-1.25); POTASSIUM 4.8 mmol/L (3.4-5.0)
== END ==
LOC: ZLAB.STJ 09:44
PROVIDERS: Internal Medicine
DX: I10 Essential (primary) hypertension (principal)